=== PATIENT | female | born 1955 | race Caucasian/White ===

== ENCOUNTER 2022-08-14 22:29 | Inpatient (IN) | payer BC, SELFPAY ==
[~2022-08-14 22:29] MED LIST: Iopamidol-370 76% 500 ML MDV (1 ML CHARGE) ONE
[2022-08-14] MEDS ORDERED: Ondansetron PF 4 MG/2 ML Vial ONE (23:39)
[2022-08-14 23:47] LABS: #Eosinphils 0.1 thou/uL (0.0-0.7); #Lymphocytes 1.2 thou/uL (1.20-3.40); #Monocytes 1.1 thou/uL (0.11-0.59); #Neutrophils 10.1 thou/uL (1.40-6.50); %Basophils 0.3 % (0.0-1.0); %Eosinophils 0.5 % (0.0-10.0); %Lymphocytes 9.9 % (21.0-51.0); %Monocytes 9.1 % (0.0-10.0); %Neutrophils 80.2 % (42.0-75.0); Hemoglobin 13.6 g/dL (12.0-16.0); Mean Corpuscular HGB CONC 33.1 g/dL (32.0-36.0); Mean Corpuscular Volume 90.6 fl (78.0-98.0); Mean Platelet Volume 7.4 fL (7.4-10.4); Platelet Count 313 10x3/uL (130-400); RBC Distribution Width 12.8 % (11.5-14.5); Red Blood Cell (RBC) Count 4.52 mill/uL (4.20-5.40); White Blood Cell (WBC) Count 12.5 10x3/uL (4.8-10.8)
[2022-08-14] MEDS ORDERED: Morphine 4 MG/ML VIAL ONE (23:50)
[2022-08-15 00:10] LABS: ALT (SGPT) 397 U/L (8-55); AST (SGOT) 403 U/L (5-34); Albumin 4.3 g/dL (3.4-4.8); Alkaline Phosphatase 164 U/L (40-110); Anion Gap 15 mmol/L (10-20); BUN (Urea Nitrogen) 14 mg/dL (9.8-20.1); Bilirubin, Total 1.1 mg/dL (0.2-1.2); Calc. Creatinine Clearance 0 mL/min (70-130); Calcium 9.6 mg/dL (7.8-10.44); Carbon Dioxide 24 mmol/L (23-31); Chloride 103 mmol/L (98-107); Estimated GFR 72; Globulin 2.3 g/dL (2.4-3.5); Glucose 120 mg/dL (80-115); Potassium 4.1 mmol/L (3.5-5.1); Protein, Total 6.6 g/dL (5.8-8.1); Sodium 138 mmol/L (136-145)
[2022-08-15 00:24] LABS: Lipase 5393 U/L (8-78)
[2022-08-15 01:10] LABS: Bilirubin Negative (Negative); Blood, Urine Negative (Negative); Clarity Clear (Clear); Glucose, Urine (Dipstick) Normal (Negative); Ketone, Urine Negative (Negative); Leukocyte Negative Leu/uL (Negative); Nitrite Negative (Negative); Protein, Urine (Dipstick) Negative (Neg-Trace); Specific Gravity, Urine 1.024 (1.002-1.036); Urobilinogen Normal mg/dL (Less than 2); pH, Urine 6.5 (5.0-9.0)
[2022-08-15] MEDS ORDERED: Piperacillin/Tazobactam 4.5 GM VIAL ONE (01:11)
[2022-08-15] MEDS ORDERED: Ondansetron ODT 4 MG TAB SL PRN (01:15)
[2022-08-15] MEDS ORDERED: Ondansetron PF 4 MG/2 ML Vial IVP PRN (01:15)
[2022-08-15] MEDS ORDERED: Acetaminophen 325 MG TAB PO PRN (01:15)
[2022-08-15] MEDS ORDERED: Sodium Chloride 0.9% 1,000 ML IV SCH (01:15)
[2022-08-15] MEDS ORDERED: Acetaminophen 650 MG Suppository PR PRN (01:17)
[2022-08-15] MEDS ORDERED: Morphine 4 MG/ML VIAL SLOW IVP PRN (01:21)
[2022-08-15] MEDS: Sodium Chloride 0.9% 1,000 ML IV SCH ×5 (02:39→21:14)
[2022-08-15 02:52] VITALS: BMI 25.6
[2022-08-15 06:59] LABS: #Eosinphils 0.1 thou/uL (0.0-0.7); #Lymphocytes 1.6 thou/uL (1.20-3.40); #Monocytes 0.4 thou/uL (0.11-0.59); #Neutrophils 2.8 thou/uL (1.40-6.50); %Basophils 0.1 % (0.0-1.0); %Eosinophils 2.2 % (0.0-10.0); %Lymphocytes 33.4 % (21.0-51.0); %Monocytes 7.6 % (0.0-10.0); %Neutrophils 56.7 % (42.0-75.0); Hemoglobin 12.2 g/dL (12.0-16.0); Mean Corpuscular HGB CONC 33.4 g/dL (32.0-36.0); Mean Corpuscular Hemoglobin 30.8 pg (27.0-31.0); Mean Corpuscular Volume 92.3 fl (78.0-98.0); Mean Platelet Volume 7.5 fL (7.4-10.4); Platelet Count 269 10x3/uL (130-400); Red Blood Cell (RBC) Count 3.95 mill/uL (4.20-5.40); White Blood Cell (WBC) Count 4.9 10x3/uL (4.8-10.8)
[2022-08-15 07:22] LABS: Anion Gap 12 mmol/L (10-20); BUN (Urea Nitrogen) 9 mg/dL (9.8-20.1); Calc. Creatinine Clearance 68 mL/min (70-130); Calcium 8.8 mg/dL (7.8-10.44); Carbon Dioxide 26 mmol/L (23-31); Chloride 109 mmol/L (98-107); Estimated GFR 78; Glucose 89 mg/dL (80-115); Sodium 143 mmol/L (136-145)
[2022-08-15] MEDS ORDERED: Piperacillin/Tazobactam 3.375 GM in Sodium Chloride 0.9% 100 ML IVPB SCH (10:00)
[2022-08-15] MEDS ORDERED: Phenol 118 ML BOT PO PRN (10:15)
[2022-08-15] MEDS: Piperacillin/Tazobactam 3.375 GM in Sodium Chloride 0.9% 100 ML IVPB SCH ×2 (14:41→21:15)
[2022-08-15] MEDS: Acetaminophen 325 MG TAB PO PRN (23:08)
[2022-08-15] MEDS: Benzonatate 100 MG CAP PO PRN (23:41)
[2022-08-15] MEDS: Loratadine 10 MG TAB PO PRN (23:41)
[2022-08-16] MEDS: Sodium Chloride 0.9% 1,000 ML IV SCH (01:51)
[2022-08-16] MEDS: Piperacillin/Tazobactam 3.375 GM in Sodium Chloride 0.9% 100 ML IVPB SCH ×3 (05:33→21:00)
[2022-08-16 06:46] LABS: #Eosinphils 0.2 thou/uL (0.0-0.7); #Lymphocytes 1.6 thou/uL (1.20-3.40); #Monocytes 0.6 thou/uL (0.11-0.59); #Neutrophils 2.5 thou/uL (1.40-6.50); %Basophils 0.5 % (0.0-1.0); %Lymphocytes 31.9 % (21.0-51.0); %Monocytes 12.9 % (0.0-10.0); %Neutrophils 49.6 % (42.0-75.0); Hemoglobin 10.7 g/dL (12.0-16.0); Mean Corpuscular HGB CONC 33.8 g/dL (32.0-36.0); Mean Corpuscular Hemoglobin 31.1 pg (27.0-31.0); Mean Corpuscular Volume 91.9 fl (78.0-98.0); Mean Platelet Volume 7.3 fL (7.4-10.4); Platelet Count 228 10x3/uL (130-400); RBC Distribution Width 12.9 % (11.5-14.5); Red Blood Cell (RBC) Count 3.45 mill/uL (4.20-5.40)
[2022-08-16 07:07] LABS: ALT (SGPT) 286 U/L (8-55); AST (SGOT) 117 U/L (5-34); Albumin 3.2 g/dL (3.4-4.8); Alkaline Phosphatase 157 U/L (40-110); Anion Gap 9 mmol/L (10-20); BUN (Urea Nitrogen) 7 mg/dL (9.8-20.1); Bilirubin, Total 0.6 mg/dL (0.2-1.2); Calc. Creatinine Clearance 72 mL/min (70-130); Calcium 8.4 mg/dL (7.8-10.44); Carbon Dioxide 25 mmol/L (23-31); Cardiac Risk 3.7 (Less than 4.5); Chloride 110 mmol/L (98-107); Cholesterol 155 mg/dl (< 200 Desired); Estimated GFR 84; Globulin 1.9 g/dL (2.4-3.5); Glucose 92 mg/dL (80-115); HDL Cholesterol 42 mg/dL (>60 Neg Risk); LDL Cholesterol, Calculated 98 mg/dL; Lipase 147 U/L (8-78); Potassium 3.4 mmol/L (3.5-5.1); Protein, Total 5.1 g/dL (5.8-8.1); Sodium 141 mmol/L (136-145); Triglycerides 74 mg/dL (Less than 150)
[2022-08-16] MEDS: Acetaminophen 325 MG TAB PO PRN ×2 (10:00→20:21)
[2022-08-16] MEDS: Lactated Ringer's 1,000 ML IV SCH ×3 (10:31→20:47)
[2022-08-16] MEDS: Benzonatate 100 MG CAP PO PRN ×2 (14:12→20:22)
[2022-08-16] MEDS: Loratadine 10 MG TAB PO PRN (14:12)
[2022-08-16] MEDS ORDERED: traMADol HCl 50 MG TAB PO PRN (16:13)
[2022-08-17] MEDS: Lactated Ringer's 1,000 ML IV SCH ×2 (05:00→17:22)
[2022-08-17] MEDS: Benzonatate 100 MG CAP PO PRN ×3 (05:00→20:06)
[2022-08-17] MEDS: Piperacillin/Tazobactam 3.375 GM in Sodium Chloride 0.9% 100 ML IVPB SCH ×3 (05:01→21:01)
[2022-08-17] MEDS: Acetaminophen 325 MG TAB PO PRN (05:05)
[2022-08-17 07:17] LABS: ALT (SGPT) 189 U/L (8-55); AST (SGOT) 39 U/L (5-34); Albumin 3.4 g/dL (3.4-4.8); Alkaline Phosphatase 128 U/L (40-110); Anion Gap 12 mmol/L (10-20); BUN (Urea Nitrogen) 7 mg/dL (9.8-20.1); Bilirubin, Total 0.4 mg/dL (0.2-1.2); Calc. Creatinine Clearance 78 mL/min (70-130); Carbon Dioxide 27 mmol/L (23-31); Chloride 107 mmol/L (98-107); Estimated GFR 93; Globulin 2.1 g/dL (2.4-3.5); Glucose 97 mg/dL (80-115); Lipase 44 U/L (8-78); Potassium 3.5 mmol/L (3.5-5.1); Protein, Total 5.5 g/dL (5.8-8.1); Sodium 142 mmol/L (136-145)
[2022-08-17] MEDS: Loratadine 10 MG TAB PO PRN (11:30)
[2022-08-17 16:58] VITALS: TEMP 97.7
[2022-08-17 19:50] VITALS: BP 130/65
== END 2022-08-17 21:15 | disposition home or self-care (01) | DRG 439 ==
LOC: ERS 22:29 → T4-B 08-15 00:57
PROVIDERS: ADMIT Hospitalist; ATTEND Hospitalist
DX: K85.90 Acute pancreatitis without necrosis or infection, unspecified (principal); K86.3 Pseudocyst of pancreas; E87.6 Hypokalemia; E89.0 Postprocedural hypothyroidism; K21.9 Gastro-esophageal reflux disease without esophagitis; Z91.013 Allergy to seafood; Z90.49 Acquired absence of other specified parts of digestive tract; Z79.899 Other long term (current) drug therapy; Z90.710 Acquired absence of both cervix and uterus
CPT/HCPCS: 36415; 36416; 74177; 76705; 80048; 80053; 80061; 81003; 83690; 84478; 84484; 85025; 93005; 96365; 96375; J2270; J2405; J2543; J3490; J7050; J7120; Q9967

== ENCOUNTER 2022-08-20 01:23 | Inpatient (IN) | payer BC, SELFPAY ==
[2022-08-20 02:13] LABS: #Eosinphils 0.3 thou/uL (0.0-0.7); #Lymphocytes 2.7 thou/uL (1.20-3.40); #Monocytes 0.8 thou/uL (0.11-0.59); #Neutrophils 7.6 thou/uL (1.40-6.50); %Basophils 0.3 % (0.0-1.0); %Eosinophils 2.5 % (0.0-10.0); %Lymphocytes 23.5 % (21.0-51.0); %Monocytes 6.6 % (0.0-10.0); %Neutrophils 67.1 % (42.0-75.0); Hemoglobin 13.6 g/dL (12.0-16.0); Mean Corpuscular HGB CONC 35.2 g/dL (32.0-36.0); Mean Corpuscular Volume 90.9 fl (78.0-98.0); Mean Platelet Volume 7.5 fL (7.4-10.4); Platelet Count 321 10x3/uL (130-400); RBC Distribution Width 12.7 % (11.5-14.5); Red Blood Cell (RBC) Count 4.26 mill/uL (4.20-5.40); White Blood Cell (WBC) Count 11.4 10x3/uL (4.8-10.8)
[2022-08-20 02:21] LABS: ALT (SGPT) 377 U/L (8-55); AST (SGOT) 393 U/L (5-34); Albumin 4.4 g/dL (3.4-4.8); Alkaline Phosphatase 409 U/L (40-110); Anion Gap 16 mmol/L (10-20); BUN (Urea Nitrogen) 13 mg/dL (9.8-20.1); Bilirubin, Total 1.2 mg/dL (0.2-1.2); Calc. Creatinine Clearance 0 mL/min (70-130); Calcium 10.2 mg/dL (7.8-10.44); Carbon Dioxide 23 mmol/L (23-31); Chloride 105 mmol/L (98-107); Estimated GFR 68; Globulin 2.6 g/dL (2.4-3.5); Glucose 146 mg/dL (80-115); Potassium 3.5 mmol/L (3.5-5.1); Sodium 140 mmol/L (136-145)
[2022-08-20 02:58] LABS: Lipase Greater than 16000 U/L (8-78)
[2022-08-20] MEDS ORDERED: Morphine 4 MG/ML VIAL ONE (03:43)
[2022-08-20] MEDS ORDERED: Ondansetron PF 4 MG/2 ML Vial ONE (03:55)
[2022-08-20] MEDS ORDERED: Calcium Carbonate 500 MG ChewTAB PO PRN (03:56)
[2022-08-20] MEDS ORDERED: Ondansetron ODT 4 MG TAB PO PRN (03:56)
[2022-08-20] MEDS ORDERED: Acetaminophen 325 MG TAB PO PRN (03:56)
[2022-08-20] MEDS ORDERED: Senokot S 8.6-50 MG TAB PO PRN (03:56)
[2022-08-20] MEDS ORDERED: Ondansetron PF 4 MG/2 ML Vial IVP PRN (03:56)
[2022-08-20] MEDS: Lactated Ringer's 1,000 ML IV SCH ×2 (05:29→11:25)
[2022-08-20] MEDS ORDERED: Lactated Ringer's 1,000 ML IV SCH (05:30)
[2022-08-20 05:39] VITALS: BMI 25.9
[2022-08-20] MEDS: Famotidine 20 MG TAB PO SCH ×2 (08:08→19:26)
[2022-08-20] MEDS: Famotidine/PF 20 mg/2ml Vial SLOW IVP SCH ×2 (08:09→19:31)
[2022-08-20] MEDS: Morphine 2 MG/ML VIAL SLOW IVP PRN ×2 (09:35→22:36)
[2022-08-20] MEDS: Ketorolac Tromethamine 30 MG/ML VIAL IVP PRN ×2 (12:00→19:23)
[2022-08-20 12:08] LABS: Hemoglobin 12.4 g/dL (12.0-16.0)
[2022-08-20] MEDS ORDERED: Dextrose 5%-Lactated Ringers 1,000 ML IV SCH (21:45)
[2022-08-21 06:27] LABS: #Eosinphils 0.5 thou/uL (0.0-0.7); #Lymphocytes 1.4 thou/uL (1.20-3.40); #Monocytes 0.7 thou/uL (0.11-0.59); %Basophils 0.3 % (0.0-1.0); %Eosinophils 4.9 % (0.0-10.0); %Lymphocytes 13.5 % (21.0-51.0); %Monocytes 6.6 % (0.0-10.0); %Neutrophils 74.8 % (42.0-75.0); Hemoglobin 11.1 g/dL (12.0-16.0); Mean Corpuscular HGB CONC 32.5 g/dL (32.0-36.0); Mean Corpuscular Hemoglobin 30.3 pg (27.0-31.0); Mean Corpuscular Volume 93.2 fl (78.0-98.0); Mean Platelet Volume 7.6 fL (7.4-10.4); Platelet Count 266 10x3/uL (130-400); Red Blood Cell (RBC) Count 3.66 mill/uL (4.20-5.40); White Blood Cell (WBC) Count 10.7 10x3/uL (4.8-10.8)
[2022-08-21 06:52] LABS: ALT (SGPT) 496 U/L (8-55); AST (SGOT) 206 U/L (5-34); Albumin 3.4 g/dL (3.4-4.8); Alkaline Phosphatase 346 U/L (40-110); Anion Gap 11 mmol/L (10-20); BUN (Urea Nitrogen) 6 mg/dL (9.8-20.1); Bilirubin, Total 0.9 mg/dL (0.2-1.2); Calc. Creatinine Clearance 75 mL/min (70-130); Calcium 8.8 mg/dL (7.8-10.44); Carbon Dioxide 25 mmol/L (23-31); Chloride 106 mmol/L (98-107); Estimated GFR 87; Globulin 2.1 g/dL (2.4-3.5); Glucose 107 mg/dL (80-115); Lipase 936 U/L (8-78); Potassium 3.3 mmol/L (3.5-5.1); Protein, Total 5.5 g/dL (5.8-8.1); Sodium 139 mmol/L (136-145)
[2022-08-21] MEDS ORDERED: Iopamidol 30 ML ONE (08:57)
[2022-08-21] MEDS ORDERED: Indomethacin 50 MG SUPP ONE (08:58)
[2022-08-21] MEDS ORDERED: fentaNYL 50 mcg/mL 1 mL Vial ONE (09:05)
[2022-08-21] MEDS ORDERED: Lidocaine 1% PF 5 ML VIAL ONE (09:16)
[2022-08-21] MEDS ORDERED: PROPOFOL 200 MG/20 ML VIAL ONE (09:16)
[2022-08-21] MEDS ORDERED: PHENYLEPHRINE-NS 100 MCG/ML 10 ML SYRINGE ONE (09:16)
[2022-08-21] MEDS ORDERED: Succinylcholine Chloride 100 MG/5 ML SYRINGE FS ONE (09:16)
[2022-08-21] MEDS ORDERED: Ondansetron PF 4 MG/2 ML Vial ONE (09:16)
[2022-08-21] MEDS ORDERED: Promethazine HCl 25 MG/ML VIAL IM PRN (10:07)
[2022-08-21] MEDS ORDERED: Ondansetron HCl/PF 4 MG/2 ML Vial IVP PRN (10:07)
[2022-08-21] MEDS: Famotidine/PF 20 mg/2ml Vial SLOW IVP SCH (10:11)
[2022-08-21] MEDS: Famotidine 20 MG TAB PO SCH ×2 (10:11→20:55)
[2022-08-21] MEDS: Ketorolac Tromethamine 30 MG/ML VIAL IVP PRN ×2 (12:59→20:54)
[2022-08-21] MEDS ORDERED: HYDROcodone/Acetaminophen 5/325 mg Tablet PO PRN (14:59)
[2022-08-22 06:00] LABS: #Eosinphils 0.6 thou/uL (0.0-0.7); #Monocytes 0.8 thou/uL (0.11-0.59); #Neutrophils 7.5 thou/uL (1.40-6.50); %Basophils 0.4 % (0.0-1.0); %Lymphocytes 19.3 % (21.0-51.0); %Neutrophils 67.8 % (42.0-75.0); Hemoglobin 9.6 g/dL (12.0-16.0); Mean Corpuscular HGB CONC 30.5 g/dL (32.0-36.0); Mean Corpuscular Hemoglobin 28.4 pg (27.0-31.0); Mean Corpuscular Volume 93.2 fl (78.0-98.0); Mean Platelet Volume 9.9 fL (7.4-10.4); Platelet Count 286 10x3/uL (130-400); RBC Distribution Width 14.6 % (11.5-14.5); Red Blood Cell (RBC) Count 3.38 mill/uL (4.20-5.40); White Blood Cell (WBC) Count 11.1 10x3/uL (4.8-10.8)
[2022-08-22 06:25] LABS: ALT (SGPT) 304 U/L (8-55); AST (SGOT) 65 U/L (5-34); Albumin 3.2 g/dL (3.4-4.8); Alkaline Phosphatase 292 U/L (40-110); Anion Gap 9 mmol/L (10-20); BUN (Urea Nitrogen) 6 mg/dL (9.8-20.1); Bilirubin, Total 0.6 mg/dL (0.2-1.2); Calc. Creatinine Clearance 79 mL/min (70-130); Calcium 8.9 mg/dL (7.8-10.44); Carbon Dioxide 25 mmol/L (23-31); Chloride 111 mmol/L (98-107); Estimated GFR 93; Globulin 2.2 g/dL (2.4-3.5); Glucose 101 mg/dL (80-115); Lipase 97 U/L (8-78); Potassium 3.2 mmol/L (3.5-5.1); Protein, Total 5.4 g/dL (5.8-8.1); Sodium 142 mmol/L (136-145)
[2022-08-22] MEDS ORDERED: Cepastat Lozenges 1 LOZ PO PRN ×2 (10:11→10:12)
[2022-08-22] MEDS: Ketorolac Tromethamine 30 MG/ML VIAL IVP PRN ×2 (11:43→18:31)
[2022-08-22] MEDS: Famotidine 20 MG TAB PO SCH ×2 (11:45→20:23)
[2022-08-23] MEDS: Ketorolac Tromethamine 30 MG/ML VIAL IVP PRN ×3 (00:32→13:26)
[2022-08-23] MEDS: Famotidine 20 MG TAB PO SCH (08:37)
[2022-08-23 16:07] VITALS: BP 129/81; TEMP 97.9
== END 2022-08-23 18:47 | disposition home or self-care (01) | DRG 444 ==
LOC: ERS 01:23 → T4-A 03:59
PROVIDERS: ADMIT Hospitalist; ATTEND Hospitalist
PROC: 0FC98ZZ Extirpation of Matter from Common Bile Duct, Via Natural or Artificial Opening Endoscopic (ICD-10-PCS; principal; 2022-08-21)
DX: K80.50 Calculus of bile duct without cholangitis or cholecystitis without obstruction (principal); K85.10 Biliary acute pancreatitis without necrosis or infection; Z91.013 Allergy to seafood; Z79.899 Other long term (current) drug therapy; Z90.710 Acquired absence of both cervix and uterus; Z90.49 Acquired absence of other specified parts of digestive tract
CPT/HCPCS: 36415; 36416; 74181; 74330; 80053; 83690; 85025; J1650; J1885; J2270; J2272; J2405; J2704; J3010; J7120; Q0162; Q9967; S0028